=== PATIENT | female | born 1935 | race Native Hawaiian/Other Pacific Islander ===

== ENCOUNTER 2016-06-09 09:34 | Inpatient (IN) | payer OTHER ==
[~2016-06-09 09:34] MED LIST: ATIVAN2 M1 PO; CRESTOR20 MG PO; GABA300C2 PO; HYDR5TAB9 PO; INSU100P SC; INSUINJP SC; NEXIUM40 M1 PO; PAROXETINE20 MG PO; ROPINIROLE0.5 MG PO; TRIBENZO2 PO
[2016-06-29] MEDS ORDERED: LEVEMIR FLEXPEN SC (20:20)
[2016-06-29] MEDS ORDERED: ALEN70TA19 PO (20:23)
[2016-06-29] MEDS ORDERED: CALCIUM + D600 MG PO (20:24)
[2016-06-29] MEDS ORDERED: CULTURELL3 PO (20:25)
[2016-06-29] MEDS ORDERED: LEXAPRO20 MG PO (20:26)
[2016-06-29] MEDS ORDERED: CLARITIN10 M1 PO (20:27)
[2016-06-29] MEDS ORDERED: MULTIVITAMI1 PO (20:28)
[2016-06-29] MEDS ORDERED: INSU100P SC (20:29)
[2016-06-29] MEDS ORDERED: OMEP40CA PO (20:30)
[2016-06-29] MEDS ORDERED: SIMV40TA57 PO (20:31)
[2016-06-29] MEDS ORDERED: OXYB5TAB56 PO (20:31)
[2016-06-29] MEDS ORDERED: REFRES1 OP (20:31)
[2016-06-29] MEDS ORDERED: ASCO500T18 PO ×2 (20:33→20:38)
[2016-06-29] MEDS ORDERED: TRIBENZO2 PO (20:33)
[2016-06-29] MEDS ORDERED: ZIPR20CA PO (20:33)
[2016-06-29] MEDS ORDERED: OLAN10TA2 PO (20:35)
[2016-06-29] MEDS ORDERED: FLUT0.05 NAS (20:35)
[2016-06-29] MEDS ORDERED: TRAM50TA PO (20:36)
[2016-06-29] MEDS ORDERED: TYLENOL325 MG PO (20:37)
[2016-06-29] MEDS ORDERED: BENADRYL25 M1 PO (20:39)
[2016-06-29] MEDS ORDERED: DEXTLIQ63 PO ×2 (20:40→20:41)
[2016-06-29] MEDS ORDERED: THROLOZ PO (20:42)
[2016-06-29] MEDS ORDERED: MAGNSUS68 PO (20:42)
== END 2016-07-10 08:00 | disposition still patient (30) ==
LOC: PAVB 09:34
PROVIDERS: ADMIT Internal Medicine
DX: Z51.89 Encounter for other specified aftercare (principal)

== ENCOUNTER 2016-07-10 09:00 | Inpatient (IN) | payer OTHER ==
[~2016-07-10 09:00] MED LIST changes: +ALEN70TA19 PO; +ASCO500T18 PO; +BENADRYL25 M1 PO; +CALCIUM + D600 MG PO; +CLARITIN10 M1 PO; +CULTURELL3 PO; +DEXTLIQ63 PO; +FLUT0.05 NAS; +LEVEMIR FLEXPEN SC; +LEXAPRO20 MG PO; +MAGNSUS68 PO; +MULTIVITAMI1 PO; +OLAN10TA2 PO; +OMEP40CA PO; +OXYB5TAB56 PO; +REFRES1 OP; +SIMV40TA57 PO; +THROLOZ PO; +TRAM50TA PO; +TYLENOL325 MG PO; +ZIPR20CA PO
== END 2016-08-10 10:18 | disposition still patient (30) ==
LOC: PAVB 09:00
PROVIDERS: ADMIT Internal Medicine
DX: Z51.89 Encounter for other specified aftercare (principal)

== ENCOUNTER 2016-08-10 10:47 | Inpatient (IN) | payer OTHER | END 2016-09-07 09:47 | disposition still patient (30) | LOC: PAVB 10:47 | PROVIDERS: ADMIT Internal Medicine | DX: Z51.89 Encounter for other specified aftercare (principal) ==

== ENCOUNTER 2016-08-12 06:27 | Outpatient (CLI) | payer OTHER | END 2016-08-12 07:27 | disposition home or self-care (01) | LOC: LAB 06:27 | DX: E10.9 Type 1 diabetes mellitus without complications (principal) | CPT/HCPCS: 36415; 83036 ==

== ENCOUNTER 2016-08-30 14:41 | Outpatient (CLI) | payer OTHER | END 2016-08-30 23:48 | disposition home or self-care (01) | LOC: RAD 14:41 | DX: M25.512 Pain in left shoulder (principal) ==

== ENCOUNTER 2016-09-07 11:00 | Inpatient (IN) | payer OTHER | END 2016-10-08 08:08 | disposition still patient (30) | LOC: PAVB 11:00 | PROVIDERS: ADMIT Internal Medicine | DX: Z51.89 Encounter for other specified aftercare (principal) ==

== ENCOUNTER 2016-09-19 10:09 | Outpatient (CLI) | payer OTHER | END 2016-09-19 19:52 | disposition home or self-care (01) | LOC: LAB 10:09 | DX: R41.82 Altered mental status, unspecified (principal) | CPT/HCPCS: 81000; 87077; 87086; 87088; 87185 ==

== ENCOUNTER 2016-10-08 09:33 | Inpatient (IN) | payer OTHER | END 2016-11-07 09:14 | disposition still patient (30) | LOC: PAVB 09:33 | PROVIDERS: ADMIT Internal Medicine | DX: Z51.89 Encounter for other specified aftercare (principal) ==

== ENCOUNTER 2016-10-19 18:22 | Outpatient (CLI) | payer OTHER | END 2016-10-19 19:10 | disposition home or self-care (01) | LOC: LAB 18:22 | DX: R30.9 Painful micturition, unspecified (principal) | CPT/HCPCS: 81000; 87077; 87086; 87088; 87185; 87186 ==

== ENCOUNTER 2016-10-24 16:19 | Outpatient (CLI) | payer OTHER | END 2016-10-24 19:29 | disposition home or self-care (01) | LOC: LAB 16:19 | DX: Z16.24 Resistance to multiple antibiotics (principal) | CPT/HCPCS: 87081 ==

== ENCOUNTER 2016-11-07 10:10 | Inpatient (IN) | payer OTHER | END 2016-12-08 09:36 | disposition still patient (30) | LOC: PAVB 10:10 | PROVIDERS: ADMIT Internal Medicine | DX: Z51.89 Encounter for other specified aftercare (principal) ==

== ENCOUNTER 2016-11-10 10:39 | Outpatient (CLI) | payer OTHER ==
[2016-11-10 10:59] LABS: PLATELET COUNT 201 K/uL (152-353)
[2016-11-10 11:32] LABS: POTASSIUM 4.9 mmol/L (3.6-5.2)
== END 2016-11-10 12:30 | disposition home or self-care (01) ==
LOC: LAB 10:39
PROVIDERS: Internal Medicine
DX: E11.9 Type 2 diabetes mellitus without complications (principal); I10 Essential (primary) hypertension; E03.9 Hypothyroidism, unspecified
CPT/HCPCS: 36415; 80053; 80061; 83036; 84443; 85027

== ENCOUNTER 2016-11-14 12:15 | Outpatient (CLI) | payer OTHER | END 2016-11-14 19:22 | disposition home or self-care (01) | LOC: RAD 12:15 | DX: R05 Cough (principal) ==

== ENCOUNTER 2016-11-29 17:23 | Outpatient (CLI) | payer OTHER | END 2016-11-29 18:30 | disposition home or self-care (01) | LOC: LAB 17:23 | DX: R30.9 Painful micturition, unspecified (principal) | CPT/HCPCS: 81000; 87077; 87086; 87088; 87185 ==

== ENCOUNTER 2016-12-08 10:05 | Inpatient (IN) | payer OTHER | END 2017-01-07 15:23 | disposition still patient (30) | LOC: PAVB 10:05 | PROVIDERS: ADMIT Internal Medicine | DX: Z51.89 Encounter for other specified aftercare (principal) ==

== ENCOUNTER 2016-12-16 16:33 | Outpatient (CLI) | payer OTHER | END 2016-12-16 19:29 | disposition home or self-care (01) | LOC: LAB 16:33 | DX: R30.0 Dysuria (principal) | CPT/HCPCS: 81000; 87077; 87086; 87088; 87186 ==

== ENCOUNTER 2017-01-07 15:46 | Inpatient (IN) | payer OTHER | END 2017-01-18 12:58 | disposition home or self-care (01) | LOC: PAVB 15:46 | PROVIDERS: ADMIT Internal Medicine | DX: Z51.89 Encounter for other specified aftercare (principal) ==

== ENCOUNTER 2017-05-25 12:31 | Outpatient (CLI) | payer OTHER ==
[2017-05-26] MEDS ORDERED: VICTOZA18 MG/3 ML SC ×2 (12:54)
== END 2017-05-25 12:36 | disposition short-term general hospital (02) ==
LOC: AMB 12:31
DX: R40.4 Transient alteration of awareness (principal); R53.83 Other fatigue
CPT/HCPCS: A0425; A0427

== ENCOUNTER 2017-05-25 12:47 | Observation (INO) | payer OTHER ==
[~2017-05-25] VITALS: Ht 157.5 cm; Wt 71.4 kg
[2017-05-25 12:40] VITALS: BP 93/46; TEMP 97.6
[2017-05-25 13:20] LABS: PLATELET COUNT 292 K/uL (152-353)
[2017-05-25 13:36] LABS: POTASSIUM 4.9 mmol/L (3.6-5.2)
[2017-05-25 15:13] VITALS: BP 89/51
[2017-05-25 18:32] VITALS: BP 80/46; TEMP 96.3; Ht 157.5 cm; Wt 71.4 kg
[2017-05-25 20:25] VITALS: BP 97/50; TEMP 98
[2017-05-26] VITALS: BP 88/41; TEMP 98.7
[2017-05-26 04:00] VITALS: BP 94/47; TEMP 98.7
[2017-05-26 05:22] LABS: PLATELET COUNT 278 K/uL (152-353)
[2017-05-26 05:36] LABS: POTASSIUM 4.3 mmol/L (3.6-5.2)
[2017-05-26 08:00] VITALS: BP 125/55; TEMP 98.6
[2017-05-26 12:00] VITALS: BP 112/56; TEMP 97.7
[2017-05-26] MEDS ORDERED: VICTOZA18 MG/3 ML SC ×2 (12:54)
[2017-05-26 16:00] VITALS: BP 111/52; TEMP 97.7
[2017-05-26 20:00] VITALS: BP 131/80; TEMP 98.6
[2017-05-27] VITALS: BP 118/56; TEMP 98.4
[2017-05-27 04:00] VITALS: BP 112/56; TEMP 98.2
[2017-05-27 04:11] LABS: PLATELET COUNT 267 K/uL (152-353)
[2017-05-27 05:08] LABS: POTASSIUM 4.3 mmol/L (3.6-5.2)
[2017-05-27 08:00] VITALS: BP 112/68; TEMP 98.45
== END 2017-05-27 11:00 | disposition home or self-care (01) ==
LOC: ED 12:47 → MED/SURG 15:13
PROVIDERS: Family Medicine; ADMIT Specialist
DX: R41.82 Altered mental status, unspecified (principal); I10 Essential (primary) hypertension; I25.10 Atherosclerotic heart disease of native coronary artery without angina pectoris; J44.9 Chronic obstructive pulmonary disease, unspecified; E11.42 Type 2 diabetes mellitus with diabetic polyneuropathy; R06.02 Shortness of breath
CPT/HCPCS: 36415; 80053; 81000; 82550; 82553; 82948; 83605; 83735; 83880; 84100; 84484; 85027; 93005; 96365; 96366; 96372; 96374; 99220; 99284; G0378; J1720; J3490

== ENCOUNTER 2017-06-16 14:43 | Observation (INO) | payer OTHER ==
[~2017-06-16] VITALS: Ht 157.5 cm; Wt 71.8 kg
[~2017-06-16 14:43] MED LIST changes: +VICTOZA18 MG/3 ML SC
[2017-06-16 15:12] VITALS: BP 105/50; TEMP 98
[2017-06-16 16:00] LABS: PLATELET COUNT 317 K/uL (152-353)
[2017-06-16 16:15] VITALS: BP 108/52; TEMP 98
[2017-06-16 16:25] LABS: POTASSIUM 4.6 mmol/L (3.6-5.2)
[2017-06-16 16:30] VITALS: BP 112/54
[2017-06-16] MEDS ORDERED: GRALISE600 MG OR (17:11)
[2017-06-16] MEDS ORDERED: TRIBENZO1 PO (17:13)
[2017-06-16] MEDS ORDERED: AMBIEN5 MG PO (17:17)
[2017-06-16] MEDS ORDERED: ROPINIROLE1 MG OR (17:18)
[2017-06-16] MEDS ORDERED: LIPITOR40 MG PO (17:18)
[2017-06-16] MEDS ORDERED: LORA0.5T17 PO (17:19)
[2017-06-16] MEDS ORDERED: ZANTAC300 MG PO (17:19)
[2017-06-16 18:16] VITALS: BP 110/62; TEMP 98.7; Ht 157.5 cm; Wt 71.8 kg
[2017-06-16] MEDS ORDERED: FLUTICASONE50 MCG (18:26)
[2017-06-16] MEDS ORDERED: TOBRSUS OP (18:31)
[2017-06-16] MEDS ORDERED: BINOSTO70 MG OR (18:35)
[2017-06-16 20:00] VITALS: BP 118/61; TEMP 99.5
[2017-06-16 20:29] LABS: POTASSIUM 4.4 mmol/L (3.6-5.2)
[2017-06-16 23:15] LABS: POTASSIUM 4.3 mmol/L (3.6-5.2)
[2017-06-17 00:29] VITALS: BP 109/57; TEMP 99.2
[2017-06-17 04:47] LABS: PLATELET COUNT 278 K/uL (152-353)
[2017-06-17 05:13] LABS: POTASSIUM 4.1 mmol/L (3.6-5.2)
[2017-06-17 08:00] VITALS: BP 105/54; TEMP 99.3
[2017-06-17 12:00] VITALS: BP 119/65; TEMP 99.6
--- NOTE | 2017-06-17 13:55 | NUR ---
IV D/C'D. TELE D/C'D. D/C INSTRUCTIONS GIVEN. PT HAS NO FUTHER QUESTIONS. PT TO MAKE FU WITH PCP IN 3-5 DAYS. PT WHEELED OUT VIA W/C AT THIS TIME. NO PROBLEMS NOTED.
== END 2017-06-17 15:00 | disposition home or self-care (01) ==
LOC: ED 14:43 → MED/SURG 16:56 → ED 17:50 → MED/SURG 06-17 15:00
PROVIDERS: Emergency Medicine; ADMIT Specialist
DX: E87.1 Hypo-osmolality and hyponatremia (principal); N18.3 Chronic kidney disease, stage 3 (moderate); E11.9 Type 2 diabetes mellitus without complications; H54.8 Legal blindness, as defined in USA
CPT/HCPCS: 36415; 36600; 80048; 80053; 81002; 82550; 82805; 82948; 83036; 83605; 84484; 85027; 93005; 96361; 96365; 96366; 96372; 96374; 99220; 99284; G0378; J1815

== ENCOUNTER 2020-03-07 13:10 | Emergency (ER) | payer OTHER ==
[~2020-03-07] VITALS: Ht 152.4 cm; Wt 81.6 kg
[~2020-03-07 13:10] MED LIST changes: +AMBIEN5 MG PO; +BINOSTO70 MG OR; +FLUTICASONE50 MCG; +GRALISE600 MG OR; +LIPITOR40 MG PO; +LORA0.5T17 PO; +ROPINIROLE1 MG OR; +TOBRSUS OP; +TRIBENZO1 PO; +ZANTAC300 MG PO
[2020-03-07 14:31] VITALS: BP 107/59; TEMP 99.6
== END 2020-03-07 14:40 | disposition home or self-care (01) ==
LOC: ED 13:10
DX: L50.8 Other urticaria (principal)
CPT/HCPCS: 99282; 99283; Q0177

== ENCOUNTER 2021-09-14 11:53 | Outpatient (CLI) | payer OTHER | END 2021-09-14 18:59 | disposition home or self-care (01) | LOC: LAB 11:53 | PROVIDERS: ATTEND Internal Medicine | DX: N39.0 Urinary tract infection, site not specified (principal) | CPT/HCPCS: 81000; 87077; 87086; 87088; 87186 ==